=== PATIENT | female | born 1975 | race American Indian/Alaskan Native ===

== ENCOUNTER 2017-11-08 19:21 | Emergency (ER) | payer BC ==
[2017-11-08 20:17] VITALS: BP 143/87
[2017-11-08 21:41] LABS: Basophils % (Auto) 0.5 % (0.0-1.8); Eosinophils # (Auto) 0.1 K/mm3 (0.0-0.4); Eosinophils % (Auto) 2.1 % (0.0-4.3); Hematocrit 40.1 % (30.3-42.9); Hemoglobin 12.5 gm/dl (10.1-14.3); Lymphocytes # (Auto) 2.1 K/mm3 (1.2-5.4); Lymphocytes % (Auto) 32.4 % (13.4-35.0); Mean Corpuscular HGB Conc 31 % (30-34); Mean Corpuscular Volume 74 fl (79-97); Monocytes # (Auto) 0.7 K/mm3 (0.0-0.8); Monocytes % (Auto) 11.5 % (0.0-7.3); Platelet Count 316 K/mm3 (140-440); Red Blood Count 5.45 M/mm3 (3.65-5.03); Red Cell Distribution Width 15.8 % (13.2-15.2)
[2017-11-08 21:49] LABS: Mean Corpuscular Hemoglobin 23 pg (28-32)
[2017-11-08 21:59] LABS: BUN/Creatinine Ratio 11; Blood Urea Nitrogen 12 mg/dL (7-17); Calcium 9.6 mg/dL (8.4-10.2); Hemolysis Index 11
[2017-11-08] MEDS ORDERED: LOVENOX SUB-Q ONE (22:42)
--- NOTE | 2017-11-08 22:45 | Emergency Department Report ---
HPI - General Chief Complaint: Extremity Problem,Nontraumatic Time Seen by Provider: 11/08/17 22:30 - HPI HPI: Room 25 The patient is a 42-year-old female presented with the chief complaint right lower extremity pain and swelling. The patient states for the past 3 days she has had pain and swelling of the right lower extremity. Patient denies any preceding trauma. Patient denies any recent flights or long car trips. Patient denies chest pain, shortness of breath or pleurisy. She denies any history of fever. Patient denies any previous episodes of the same. The patient gives her pain a score of 6-7/10 Location: Right lower extremity Duration: 3 days Quality: Pain Severity:6-7/10 Modifying factors: [see above] Context: [see above] Mode of transportation: Unknown ED Past Medical Hx - Past Medical History Hx Hypertension: Yes - Surgical History Hx Cholecystectomy: Yes (laparoscopic) - Family History Family history: no significant - Social History Smoking Status: Never Smoker Substance Use Type: None (denies illicit drug use), Alcohol (occasional) - Medications Home Medications: Home Medications Medication Instructions Recorded Confirmed Last Taken Type HYDROcodone/APAP 5-325 [[place] 1 - 2 each PO Q6HR PRN #10 tablet 11/08/17 Unknown Rx 5/325] ED Review of Systems ROS: Stated complaint: SWELLING ON (R) LEG Other details as noted in HPI Constitutional: denies: fever Eyes: denies: eye pain ENT: denies: throat pain Respiratory: denies: shortness of breath, other (no pleurisy) Cardiovascular: denies: chest pain Endocrine: denies: unexplained weight loss Gastrointestinal: denies: abdominal pain Genitourinary: denies: dysuria Musculoskeletal: myalgia Skin: denies: change in color Neurological: denies: headache Hematological/Lymphatic: other (right lower extremity swelling) Physical Exam - Physical Exam Vital Signs: Vital Signs 11/08/17 20:05 Temperature 98.0 F Pulse Rate 94 H Respiratory 20 Rate Blood Pressure 143/87 O2 Sat by Pulse 98 Oximetry Physical Exam: GENERAL: The patient is well-developed well-nourished female sitting on stretcher not appearing to be in acute distress. [] HEENT: Normocephalic. Atraumatic. Extraocular motions are intact. Patient has moist mucous membranes. NECK: Supple. Trachea midline CHEST/LUNGS: Clear to auscultation. There is no respiratory distress noted. HEART/CARDIOVASCULAR: Regular. There is no tachycardia. There is no gallop rub or murmur. ABDOMEN: Abdomen is soft, nontender. Patient has normal bowel sounds. There is no abdominal distention. SKIN: There is no increased warmth of the right lower extremity. There is 2+ right lower extremity edema. There is no diaphoresis. NEURO: The patient is awake, alert, and oriented. The patient is cooperative. The patient has normal speech MUSCULOSKELETAL: Th There is no evidence of acute injury. ED Course Vital Signs 11/08/17 20:05 Temperature 98.0 F Pulse Rate 94 H Respiratory 20 Rate Blood Pressure 143/87 O2 Sat by Pulse 98 Oximetry ED Medical Decision Making - Lab Data Result diagrams: 11/08/17 21:21 11/08/17 21:21 Laboratory Tests 11/08/17 11/08/17 11/08/17 21:21 21:21 21:21 WBC 6.4 RBC 5.45 H Hgb 12.5 Hct 40.1 MCV 74 L MCH 23 L MCHC 31 RDW 15.8 H Plt Count 316 Lymph % (Auto) 32.4 Gove % (Auto) 11.5 H Eos % (Auto) 2.1 Baso % (Auto) 0.5 Lymph # 2.1 Gove # 0.7 Eos # 0.1 Baso # 0.0 Seg Neutrophils % 53.5 Seg Neutrophils # 3.4 D-Dimer 260.78 H Sodium 142 Potassium 4.3 Chloride 102.1 Carbon Dioxide 30 Anion Gap 14 BUN 12 Creatinine 1.1 Estimated GFR > 60 BUN/Creatinine Ratio 11 Glucose 109 H Calcium 9.6 - Medical Decision Making Unable to perform lower extremity Doppler at this time. Patient will be administered Lovenox empirically and instructed to return to the hospital tomorrow for a right lower extremity Doppler. Patient given strong warnings to return to emergency department immediately should she develop chest pain, shortness of breath or pleurisy. Critical care attestation.: If time is entered above; I have spent that time in minutes in the direct care of this critically ill patient, excluding procedure time. ED Disposition Clinical Impression: Pain and swelling of right lower extremity Disposition: DC-01 TO HOME OR SELFCARE Is pt being admited?: No Does the pt Need Aspirin: No Condition: Stable Instructions: Deep Venous Thrombosis (ED), Leg Edema (ED) Additional Instructions: Return to the emergency department immediately should you develop worsening symptoms, fever, inability to tolerate food or liquid or any other concerns. Prescriptions: HYDROcodone/APAP 5-325 [[place] 5/325] 1 - 2 each PO Q6HR PRN #10 tablet PRN Reason: Pain Referrals: PRIMARY CARE, [Primary Care Provider] - 3-5 Days Time of Disposition: 22:53
== END 2017-11-08 23:10 | disposition home or self-care (01) ==
LOC: ED 19:21
DX: M79.604 Pain in right leg (principal); R22.41 Localized swelling, mass and lump, right lower limb; I10 Essential (primary) hypertension; Z90.49 Acquired absence of other specified parts of digestive tract
CPT/HCPCS: 36415; 80048; 85025; 85379; 96372; 99283; J1650

== ENCOUNTER 2017-11-09 09:19 | Outpatient (CLI) | payer BC ==
--- NOTE | 2017-11-10 13:17 | Vascular Lab Report ---
Right Lower Extremity Venous Duplex Study: Reason for Exam: Pain and swelling of the right lower extremity. Comments on the Right: All veins visualized are freely compressible without evidence of internal echogenicity. Flow is spontaneous and phasic throughout. No evidence of acute or chronic thrombus is seen in any of the vessels visualized. A soft tissue change in the right knee area is consistent with a Ferrer's cyst. Comments on the Left: A limited duplex study was done of the proximal veins of the left lower extremity. All veins visualized are freely compressible without evidence of internal echogenicity. Flow is spontaneous and phasic throughout. No evidence of acute or chronic thrombus is seen in any of the vessels visualized. Impression: No evidence of acute or chronic deep venous thrombosis in the right lower extremity. A soft tissue change in the right knee area is consistent with a Ferrer's cyst.
== END 2017-11-09 09:20 | disposition home or self-care (01) ==
LOC: VAS 09:19
PROVIDERS: ATTEND Emergency Medicine Emergency Medical Services
DX: R22.41 Localized swelling, mass and lump, right lower limb (principal); I10 Essential (primary) hypertension